=== PATIENT | female | born 1965 | race Caucasian/White ===

== ENCOUNTER 2024-05-31 13:20 | Emergency (ER) | payer MEDICARE, MEDICAID ==
[~2024-05-31 13:20] MED LIST: ALBU18HF2 INH; APIX5TAB3 PO; ASPIRIN 81MG PO; BABY ASPIRIN PO; BENZ1TAB97 PO; BUSPIRONE; CALC500T11 PO; CELE-193 PO; CETI-90 PO; DOCU100C40 PO; FLUO40CA PO; HYDR-3965 PO; IRON SUPPLIMENT; METO-384 PO; MULT-1085 PO; OLOPATADINE 0.2% EACHEYE; OMEP40CA21 PO; ONDA-103; OSC500T PO; PALI3TAB PO; PER5325T; ZIPR60CA7 PO
[2024-05-31 13:23] VITALS: TEMP 98.4
[2024-05-31 15:38] VITALS: BP 146/86; PULSE 82; RESP 15; O2SAT 98
== END 2024-05-31 15:53 | disposition home or self-care (01) ==
LOC: ER 13:21
DX: R60.0 Localized edema (principal); J45.909 Unspecified asthma, uncomplicated; Z88.1 Allergy status to other antibiotic agents; Z88.3 Allergy status to other anti-infective agents; Z91.040 Latex allergy status
CPT/HCPCS: 93971; 99284

== ENCOUNTER 2024-08-05 14:51 | Emergency (ER) | payer MEDICARE, MEDICAID ==
[~2024-08-05] VITALS: Ht 172.7 cm; Wt 118.2 kg
[2024-08-05 15:44] LABS: BASOPHILS % (AUTO) 0.4 % (0-1); EOSINOPHILS % (AUTO) 0.4 % (0-6); HEMATOCRIT 40.2 % (35.0-45.0); HEMOGLOBIN 13.6 g/dl (12.0-16.0); LYMPHOCYTES # (AUTO) 1.7 X10'3 (1.1-4.8); LYMPHOCYTES % (AUTO) 22.7 % (21-51); MEAN CORPUSCULAR HEMOGLOBIN 30.9 PG (27.0-31.0); MEAN CORPUSCULAR HGB CONC 33.9 g/dL (33.0-36.5); MEAN CORPUSCULAR VOLUME 91.3 FL (78-98); MEAN PLATELET VOLUME 7.7 FL (7.4-10.4); MONOCYTES # (AUTO) 0.4 X10'3 (0-0.9); MONOCYTES % (AUTO) 5.6 % (2-12); NEUTROPHILS # (AUTO) 5.4 X10'3 (1.8-7.7); NEUTROPHILS % (AUTO) 70.9 % (42-75); PLATELET COUNT 261 X10'3 (140-440); RED CELL DISTRIBUTION WIDTH 14.5 % (11.5-14.5); WHITE BLOOD COUNT 7.7 X10'3 (4.5-11.0)
[2024-08-05 16:13] LABS: ALANINE AMINOTRANSFERASE 18 U/L (12-78); ALBUMIN 3.2 G/DL (3.4-5.0); ALKALINE PHOSPHATASE 106 IU/L (46-116); ANION GAP 11 (8-16); ASPARTATE AMINO TRANSFERASE 11 U/L (10-37); BILIRUBIN,TOTAL 0.4 MG/DL (0.1-1.0); BLOOD UREA NITROGEN 10 MG/DL (7-18); BUN/CREATININE RATIO 11.4 (10.0-20.0); CALCIUM 9.2 MG/DL (8.5-10.1); CHLORIDE 107 MMOL/L (99-107); CREATININE 0.88 MG/DL (0.40-0.90); GLUCOSE 126 MG/DL (70-104); LIPASE 12 U/L (16-77); POTASSIUM 3.8 MMOL/L (3.5-5.1); SODIUM 141 MMOL/L (135-145); TOTAL CARBON DIOXIDE 23.2 MMOL/L (24-32); TOTAL PROTEIN 6.3 G/DL (6.4-8.2); eCRCL 70 ML/MIN; eGFR 66 ML/MIN
--- NOTE | 2024-08-05 17:30 | Physician Documentation ---
History of Present Illness Chief Complaint: Abdominal Pain Stated Complaint: STOMACH PAIN Time Seen by MD: 16:51 HPI 59-year-old female presents to the ED with a complaint of two days of diarrhea. She denies any severe abdominal pain does report mild discomfort in the right lower quadrant states that she this does happened to her intermittently. says that Imodium AD usually helps. Denies any fever Day of Onset: August 05, 2024 Medication Reconciliation Allergies: Coded Allergies: chlorpromazine (Verified Allergy, Unknown, 05/02/14) ketoconazole (Verified Allergy, Unknown, 05/02/14) latex (Verified Allergy, Unknown, 05/02/14) tetracycline (Verified Allergy, Unknown, 05/02/14) Scheduled Albuterol Sulfate (Ventolin Hfa), 2 PUFFS INH Q4HPRN, (Reported) Apixaban (Eliquis), 5 MG PO BID, (Reported) Benztropine Mesylate* (Cogentin*), 1 MG PO BID, (Reported) Calcium Carbonate (Tums), 1 TAB PO Q4H, (Reported) Calcium Carbonate* (Oscal*), 1 TAB PO BID, (Reported) Celecoxib* (Celebrex*), 50 MG PO BID, (Reported) Cephalexin*Monohydrate* (Keflex*), 1 CAP PO Q8H Docusate Sodium (Docusate Sodium), 1 CAP PO Q12H, (Reported) Fluoxetine Hcl (Fluoxetine Hcl), 1 CAP PO DAILY, (Reported) Hydrocodone Bit/Acetaminophen 5/325 MG ([place] 5/325 MG), 1 TAB PO Q4H, (Reported) Metoprolol Succinate (Metoprolol Succinate), 1 TAB PO BID, (Reported) Multivitamin (Multi Vitamin Daily), 1 TAB PO DAILY, (Reported) Omeprazole (Prilosec), 1 CAP PO DAILY, (Reported) Paliperidone (Invega), 1 TAB PO QAM, (Reported) Ziprasidone Hcl (Ziprasidone Hcl), 1 CAP PO BID, (Reported) [Buspirone], 30 MG BID, (Reported) Scheduled PRN Cetirizine HCl (Zyrtec), 1 TAB PO BID PRN for PRN, (Reported) Miscellaneous Medications Ondansetron HCl (Ondansetron HCl), (Reported) Oxycodone Hcl/Acetaminophen 5/325 MG* (Percocet 5/325 MG*), (Reported) [Aspirin 81MG], 81 MG PO [Baby Aspirin Ec], 81 MG PO, (Reported) [Iron Suppliment], (Reported) [Olopatadine Shaina 0.2%], 1 DROP EACHEYE, (Reported) Past Medical History Past Medical History: Headache, Asthma Past Surgical History: noncontributory Smoking Status: Former smoker Drug Use: none Lives In: Home Review of Systems All Other Systems at this time: Reviewed and Negative ROS As stated above in the HPI, otherwise all systems are reviewed and negative. Physical Exam Vital Signs: Temperature: 97.8, Source: Temporal, Heart Rate: 90, Respiratory Rate: 15, BP: 140/82, Pulse Oximetry: 97, Weight: 118.180 Physical Exam General: Alert, no apparent distress. Respiratory: Lungs clear, no respiratory distress. Chest: No accessory muscle use. Cardiovascular: Regular rate and rhythm, no murmurs. Gastrointestinal: Soft, nontender, nondistended. Bowels sounds present. Extremities: Normal range of motion, no deformity. Neurologic: Oriented x4. Psychiatric: Normal mood and affect. Skin: Normal color, warm and dry. No edema, no ecchymosis. Progress Results/Orders Results/Orders Orders - SHADY GALAVN DOULA Urinalysis, Cult If Indicated (08/05/24 15:11) Completed Orders - SHADY GALVAN DOULA Cbc/Diff (08/05/24 15:11) BMP (08/05/24 15:11) Lipase (08/05/24 15:11) CMP (08/05/24 15:11) Vital Signs 08/05/24 08/05/24 15:09 15:47 Temp 97.8 Pulse 88 90 Resp 18 15 B/P (MAP) 134/91 140/82 (101) Pulse Ox 98 97 Laboratory Tests Test 08/05/24 15:32 White Blood Count 7.7 Red Blood Count 4.40 Hemoglobin 13.6 Hematocrit 40.2 Mean Corpuscular Volume 91.3 Mean Corpuscular Hemoglobin 30.9 Mean Corpuscular Hemoglobin Concent 33.9 Red Cell Distribution Width 14.5 Platelet Count 261 Mean Platelet Volume 7.7 Neutrophils (%) (Auto) 70.9 Lymphocytes (%) (Auto) 22.7 Monocytes (%) (Auto) 5.6 Eosinophils (%) (Auto) 0.4 Basophils (%) (Auto) 0.4 Neutrophils # (Auto) 5.4 Lymphocytes # (Auto) 1.7 Monocytes # (Auto) 0.4 Eosinophils # (Auto) 0.0 Basophils # (Auto) 0.0 CBC Comment Sodium Level 141 Potassium Level 3.8 Chloride Level 107 Carbon Dioxide Level 23.2 L Anion Gap 11 Blood Urea Nitrogen 10 Creatinine 0.88 Estimated GFR/1.73 m2 66 BUN/Creatinine Ratio 11.4 Glucose Level 126 H Calcium Level 9.2 Total Bilirubin 0.4 Aspartate Amino Transf (AST/SGOT) 11 Alanine Aminotransferase (ALT/SGPT) 18 Alkaline Phosphatase 106 Total Protein 6.3 L Albumin 3.2 L Globulin 3.1 Albumin/Globulin Ratio 1.0 L Lipase 12 L Chemistry Comments Medical Decision Making Findings I am going to treat patient for a positive UTI with positive nitrites. No other laboratory results showed any findings. Patient otherwise is nontoxic appearing and appropriate to the situation going to discharge her back to her facility Differential Dx:Considerations: Include: AAA, -Complete, - Incomplete, -Inevitable, -Missed, -Threatened, Abruptio placentae, Angina/TN, Aortic dissection, Appendicitis, Bowel obstruction, Cholangitis, Cholelithasis, Constipation, Diverticular disease, Esophageal rupture, Esophagitis, Gastritis/PUD, Gastroenteritis, GI hemorrhage, Hernia, Hepatitis, Inflammatory BD, Ischemic bowel, Ovarian cyst/torsion, Pancreatitis, PID, Porphyria, Trauma, intraabdominal, Urinary obstruction, Urinary tract infection, Urolithiasis, Other Departure Disposition: 01 HOME / SELF CARE / HOMELESS Impression: Primary Impression: UTI (urinary tract infection) Condition: Stable Discharge Instructions: Urinary Tract Infection, Adult Referrals: NO PRIMARY CARE PROVIDER (PCP) Prescriptions Cephalexin*Monohydrate* (Keflex*) 500 Mg Capsule 1 CAP PO Q8H for 10 Days, #30 CAP Prov: SHADY GALVAN DOULA 08/05/24 Education Educated: Patient Educated regarding: diagnosis Signature Scribe Signature: h Attestation: The note accurately reflects work and decisions made by me.Shady Galvan - JUAN 08/05/24 18:29 SHADY GALVAN NP August 05, 2024 17:30
[2024-08-05 17:58] LABS: BILIRUBIN,URINE NEGATIVE (Neg); CLARITY,URINE CLOUDY (Clear); COLOR,URINE YELLOW (Yellow); GLUCOSE, URINE NEGATIVE (Neg); KETONES,URINE NEGATIVE (Neg); LEUKOCYTE ESTERASE ,URINE TRACE (Neg); NITRITES, URINE POSITIVE (Neg); OCCULT BLOOD,URINE NEGATIVE (Neg); PROTEIN,URINE NEGATIVE (Neg); UROBILINOGEN,URINE 0.2 E.U/dL (0.2-1.0)
[2024-08-05 18:03] LABS: UA COLLECTION TYPE URINAL
[2024-08-05 18:04] LABS: BACTERIA,URINE 4+ /HPF (Neg); MUCUS STRANDS NONE SEEN /LPF (Neg); RBC,URINE 0-2 /HPF (0-2); SQUAMOUS EPITHELIAL CELL,UR FEW /LPF (FEW); TRANSITIONAL EPI CELLS,URINE FEW /HPF
[2024-08-05 18:05] LABS: AMORPHOUS URATES 1+; RENAL CELLS, URINE FEW /HPF
[2024-08-05] MEDS ORDERED: CEPH-585 PO (18:29)
[2024-08-05 18:40] VITALS: BP 120/80; PULSE 76; RESP 16; TEMP 98; O2SAT 99
== END 2024-08-05 18:40 | disposition home or self-care (01) ==
LOC: ER 14:51
DX: N39.0 Urinary tract infection, site not specified (principal); J45.909 Unspecified asthma, uncomplicated; Z87.891 Personal history of nicotine dependence; Z88.1 Allergy status to other antibiotic agents; Z88.3 Allergy status to other anti-infective agents
CPT/HCPCS: 36415; 80053; 81001; 83690; 85025; 87077; 87088; 87186; 99284

== ENCOUNTER 2024-10-12 10:27 | Emergency (ER) | payer MEDICARE, MEDICAID ==
[~2024-10-12] VITALS: Ht 170.2 cm; Wt 118.6 kg
--- NOTE | 2024-10-12 11:16 | Physician Documentation ---
History of Present Illness ~ Chief Complaint: Ankle pain Stated Complaint: L ANKLE PAIN Time Seen by MD: 11:08 Source: patient Mode of Arrival: Wheelchair Exam Limitations: no limitations HPI 59 Year old female with history of fracture to left ankle was using the restroom yesterday when she stepped and twisted ankle and has pain but she has been weight-bearing. No swelling Tetanus witin 5 years: No Medication Reconciliation Allergies: Coded Allergies: chlorpromazine (Verified Allergy, Unknown, 10/12/24) ketoconazole (Verified Allergy, Unknown, 10/12/24) latex (Verified Allergy, Unknown, 10/12/24) tetracycline (Verified Allergy, Unknown, 10/12/24) Scheduled Albuterol Sulfate (Ventolin Hfa), 2 PUFFS INH Q4HPRN, (Reported) Apixaban (Eliquis), 5 MG PO BID, (Reported) Benztropine Mesylate* (Cogentin*), 1 MG PO BID, (Reported) Calcium Carbonate (Tums), 1 TAB PO Q4H, (Reported) Calcium Carbonate* (Oscal*), 1 TAB PO BID, (Reported) Celecoxib* (Celebrex*), 50 MG PO BID, (Reported) Docusate Sodium (Docusate Sodium), 1 CAP PO Q12H, (Reported) Fluoxetine Hcl (Fluoxetine Hcl), 1 CAP PO DAILY, (Reported) Hydrocodone Bit/Acetaminophen 5/325 MG ([place] 5/325 MG), 1 TAB PO Q4H, (Reported) Metoprolol Succinate (Metoprolol Succinate), 1 TAB PO BID, (Reported) Multivitamin (Multi Vitamin Daily), 1 TAB PO DAILY, (Reported) Omeprazole (Prilosec), 1 CAP PO DAILY, (Reported) Paliperidone (Invega), 1 TAB PO QAM, (Reported) Ziprasidone Hcl (Ziprasidone Hcl), 1 CAP PO BID, (Reported) [Buspirone], 30 MG BID, (Reported) Scheduled PRN Cetirizine HCl (Zyrtec), 1 TAB PO BID PRN for PRN, (Reported) Miscellaneous Medications Ondansetron HCl (Ondansetron HCl), (Reported) Oxycodone Hcl/Acetaminophen 5/325 MG* (Percocet 5/325 MG*), (Reported) [Aspirin 81MG], 81 MG PO [Baby Aspirin Ec], 81 MG PO, (Reported) [Iron Suppliment], (Reported) [Olopatadine Shaina 0.2%], 1 DROP EACHEYE, (Reported) Past Medical History Past Medical History: Headache, Asthma Past Surgical History: noncontributory Drug Use: none Lives In: Home Review of Systems All Other Systems at this time: Reviewed and Negative Musculoskeletal: Reports: see HPI Physical Exam Vital Signs: RN Vital Signs have been reviewed: Yes, Temperature: 98.7, Source: Oral, Heart Rate: 89, Respiratory Rate: 20, BP: 155/84, Pulse Oximetry: 97, Weight: 118.640 Physical Exam General: Alert, no apparent distress. Respiratory: Lungs clear, no respiratory distress. Chest: No accessory muscle use. Cardiovascular: Regular rate and rhythm, no murmurs. Extremities: Normal range of motion no deformity no obvious swelling pain to the lateral malleolus Neurologic: Oriented x4. Psychiatric: Normal mood and affect. Skin: Normal color, warm and dry. No edema, no ecchymosis. Progress Results/Orders Results/Orders Vital Signs 10/12/24 10:30 Temp 98.7 Pulse 89 Resp 20 B/P (MAP) 155/84 Pulse Ox 97 EKG/XRAY/CT/US/VASC/MRI Bone/Soft Tissue X-Ray (Ext.) : Additional Comment CLINICAL INDICATION: ANKLE PAIN TECHNIQUE: 4 radiographic views of the left ankle were obtained. Comparison: None FINDINGS/IMPRESSION: There is acute mildly displaced fracture of the distal medial and posterior tibia with intra-articular extension. There is associated widening of the posterior tibiotalar joint space and associated soft tissue edema. Small plantar calcaneal bony spur. Medical Decision Making Findings Previous injuring fracture years ago. Patient twisted left ankle x-ray to evaluate for any osseous abnormality differentials includes sprain. Mildly displaced fracture that is acute. Short-leg splint placed orthopedic referral placed Departure Time of Disposition: 13:27 Disposition: 01 HOME / SELF CARE / HOMELESS Impression: Primary Impression: Ankle fracture Condition: Stable Discharge Instructions: Ankle Fracture Additional Instructions: CLINICAL INDICATION: ANKLE PAIN TECHNIQUE: 4 radiographic views of the left ankle were obtained. Comparison: None FINDINGS/IMPRESSION: There is acute mildly displaced fracture of the distal medial and posterior tibia with intra-articular extension. There is associated widening of the posterior tibiotalar joint space and associated soft tissue edema. Small plantar calcaneal bony spur. Fracture noted follow up with [facility] for further treatment and evaluation follow up with primary care Monday or Monday leave splint on until followed by Orthopedics Referrals: NO PRIMARY CARE PROVIDER (PCP) [facility] Education Educated: Patient Educated regarding: diagnosis, treatment, need for follow up Signature Scribe Signature: No scribe Attestation: The note accurately reflects work and decisions made by me.Lidia JOHNSON 10/12/24 11:16 LIDIA ARNOLD NP Oct 12, 2024 11:16
--- NOTE | 2024-10-12 13:04 | RADIOLOGY REPORT ---
CLINICAL INDICATION: ANKLE PAIN TECHNIQUE: 4 radiographic views of the left ankle were obtained. Comparison: None FINDINGS/IMPRESSION: There is acute mildly displaced fracture of the distal medial and posterior tibia with intra-articula r extension. There is associated widening of the posterior tibiotalar joint space and associated sof t tissue edema. Small plantar calcaneal bony spur.
[2024-10-12 14:49] VITALS: BP 134/108; PULSE 95; RESP 16; TEMP 97.8; O2SAT 97
== END 2024-10-12 14:53 | disposition home or self-care (01) ==
LOC: ER 10:27
DX: S82.302A Unspecified fracture of lower end of left tibia, initial encounter for closed fracture (principal); J45.909 Unspecified asthma, uncomplicated; Z88.1 Allergy status to other antibiotic agents; Z88.3 Allergy status to other anti-infective agents; Z91.040 Latex allergy status; X50.1XXA Overexertion from prolonged static or awkward postures, initial encounter; Y93.89 Activity, other specified; Y92.89 Other specified places as the place of occurrence of the external cause; Y99.8 Other external cause status
CPT/HCPCS: 29515; 73610; 99284; A6402; A6446; A6449

== ENCOUNTER 2025-01-16 14:09 | Emergency (ER) | payer MEDICARE, MEDICAID ==
[~2025-01-16] VITALS: Ht 167.6 cm; Wt 118.6 kg
[~2025-01-16 14:09] MED LIST changes: +ACET-1025 PO; -ASPIRIN 81MG PO; +BUSP30TA3 PO; -BUSPIRONE; -CALC500T11 PO; +DIGO-20 PO; -IRON SUPPLIMENT; +KEN0.1O TOP; -MULT-1085 PO; -ONDA-103; +ONDA-103 PO; -PER5325T; +WALKERFR
[2025-01-16 14:19] VITALS: BP 108/76; PULSE 88; RESP 16; TEMP 96.8; O2SAT 94
--- NOTE | 2025-01-16 14:56 | RADIOLOGY REPORT ---
CLINICAL HISTORY: Hip Pain Post Fall TECHNIQUE: 2 views of the left hip were obtained. COMPARISON: DI FLUORO UP TO 1HOUR on DOS: 10/24/24, DI ANKLE,LIMITED (AP/LAT) on DOS: 10/24/24, DI ANKLE, COMPLETE(3VW MIN) on DOS: 10/12/24 FINDINGS: No acute fracture or dislocation is seen. There is a right total hip arthroplasty. No periprosthetic fracture or lucency is seen within the imaged arthroplasty. There are moderate to severe degenerative changes of the left hip with [id number] appearance, lateral hip subluxation, subchondral sclerosis, and remodeling of the femoral head. No significant soft tissue abnormality is seen. IMPRESSION: NO ACUTE RADIOGRAPHIC ABNORMALITY OF THE LEFT HIP.
--- NOTE | 2025-01-16 15:23 | Physician Documentation ---
History of Present Illness ~ Chief Complaint: Mechanical Fall Stated Complaint: HIP PAIN Time Seen by MD: 14:22 HPI This 59-year-old female with a history of developmental delay was brought in by care staff after she had a slip and fall while using the toilet patient reports that she fell striking her left hip though was able to catch herself on the toilet to avoid falling all the way to the ground, patient reports pain to left hip and reports no other acute injuries or concerns. Patient reports no head strike. Tetanus within 5 Years?: No Medication Reconciliation Allergies: Coded Allergies: chlorpromazine (Verified Allergy, Intermediate, ITCH, 01/16/25) ketoconazole (Verified Allergy, Intermediate, ITCH, 01/16/25) latex (Verified Allergy, Intermediate, ITCH, 01/16/25) tetracycline (Verified Allergy, Intermediate, ITCH, 01/16/25) Scheduled Albuterol Sulfate (Ventolin Hfa), 2 PUFFS INH Q4HPRN, (Reported) Apixaban (Eliquis), 5 MG PO BID, (Reported) Benztropine Mesylate* (Cogentin*), 1 MG PO BID, (Reported) Buspirone HCl (Buspirone HCl), 1 TAB PO Q12H, (Reported) Calcium Carbonate* (Oscal*), 1 TAB PO BID, (Reported) Celecoxib* (Celebrex*), 50 MG PO BID, (Reported) Digoxin (Digoxin), 1 TAB PO DAILY, (Reported) Docusate Sodium (Docusate Sodium), 1 CAP PO Q12H, (Reported) Fluoxetine Hcl (Fluoxetine Hcl), 1 CAP PO DAILY, (Reported) Metoprolol Succinate (Metoprolol Succinate), 1 TAB PO BID, (Reported) Omeprazole (Prilosec), 1 CAP PO DAILY, (Reported) Paliperidone (Invega), 1 TAB PO QAM, (Reported) Triamcinolone Acetonide 0.1% Crm* (Kenalog 0.1% Crm*), 1 APPLIC TOP Q12H, (Reported) Ziprasidone Hcl (Ziprasidone Hcl), 1 CAP PO DAILY, (Reported) Scheduled PRN Acetaminophen (Tylenol Extra Strength), 1 TAB PO TID PRN PRN for pain or fever, (Reported) Cetirizine HCl (Zyrtec), 1 TAB PO BID PRN for PRN, (Reported) Hydrocodone Bit/Acetaminophen 5/325 MG ([place] 5/325 MG), 1 TAB PO Q4H PRN for pain, (Reported) Ondansetron HCl (Ondansetron HCl), 4 MG PO PRN PRN for nausea/vomiting, (Reported) Miscellaneous Medications [Baby Aspirin Ec], 81 MG PO, (Reported) [Olopatadine Shaina 0.2%], 1 DROP EACHEYE, (Reported) Durable Medical Equipment Walker, Front Wheeled (Walker, Front-wheeled), APPLIC .SEE ORDER DAILY PRN for prn, (DME) Past Medical History Past Medical History: Headache, Asthma Past Surgical History: noncontributory Drug Use: none Lives In: Home Review of Systems ROS As stated above in the HPI, otherwise all systems are reviewed and negative. Physical Exam Vital Signs: Temperature: 96.8, Source: Temporal, Heart Rate: 88, Respiratory Rate: 16, BP: 108/76, Pulse Oximetry: 94, Weight: 118.640 Oxygen Flow Rate: 0 Physical Exam VITALS: Reviewed and as above. GENERAL: Alert, nontoxic appearing, no apparent distress. HEENT: PERRLA, EOMI, scalp nontender to palpation, no visible injuries, C-spine nontender to palpation RESPIRATORY: No increased work of breathing, no respiratory distress, speaking in full clear sentences MUSCULOSKELETAL: Tenderness to left lateral upper thigh and hip, no obvious deformity, all other limbs nontender to palpation, of note left foot in boot post recent surgery Progress Results/Orders Results/Orders Orders - JUAREZ NIXON Hip Unilateral 2 Views (01/16/25 14:23) Completed Orders - JUAREZ NIXON Hip Unilateral 2 Views (01/16/25 14:23) Vital Signs 01/16/25 14:19 Temp 96.8 Pulse 88 Resp 16 B/P (MAP) 108/76 Pulse Ox 94 O2 Flow Rate 0 EKG/XRAY/CT/US/VASC/MRI Bone/Soft Tissue X-Ray (Ext.) : Additional Comment Exam: HIP UNILATERAL 2 VIEWS CLINICAL HISTORY: Hip Pain Post Fall TECHNIQUE: 2 views of the left hip were obtained. COMPARISON: DI FLUORO UP TO 1HOUR on DOS: 10/24/24, DI ANKLE,LIMITED (AP/LAT) on DOS: 10/24/24, DI ANKLE, COMPLETE(3VW MIN) on DOS: 10/12/24 FINDINGS: No acute fracture or dislocation is seen. There is a right total hip arthroplasty. No periprosthetic fracture or lucency is seen within the imaged arthroplasty. There are moderate to severe degenerative changes of the left hip with [id number] appearance, lateral hip subluxation, subchondral sclerosis, and remodeling of the femoral head. No significant soft tissue abnormality is seen. IMPRESSION: NO ACUTE RADIOGRAPHIC ABNORMALITY OF THE LEFT HIP. Electronically Signed by:ROSALVA BECKWITH MD Date & Time: 01/16/251452 Dictated by: ROSALVA BECKWITH MD Dictation date and time: 01/16/251452 I have reviewed and agree with the radiology report. I have reviewed and interpreted the imaging as: No fracture or dislocation Medical Decision Making Additional information obtaine: piece work checker Findings This 59-year-old female with a history of developmental delay brought in by caregivers for left hip pain after a mechanical ground level fall striking her left hip, physical exam significant for tenderness to the left lateral hip and upper thigh otherwise physical exam benign with no other acute injuries. X-ray of hip did not demonstrate evidence of fracture or dislocation. I suspect soft tissue injury and or contusion to the hip and thigh. Patient is otherwise well- appearing and appropriate for outpatient follow up. Caregivers provided home care instructions, follow up instructions, and return to care precautions. Differential Dx:Considerations: Include: Closed head injury, Cardiac injury, Fracture(s), Intraabdominal injury, Pneumothorax, Cerebral contusion, Spine injury, Urological injury, Vascular injury, Contusion(s), Hematoma(s), Laceration(s) Departure Time of Disposition: 15:22 Disposition: 01 HOME / SELF CARE / HOMELESS Impression: Primary Impression: Hip pain Qualified Codes: M25.552 - Pain in left hip Condition: Improved Discharge Instructions: RICE Therapy for Routine Care of Injuries, [id number] Additional Instructions: Please see the attached home care instructions to help treat her hip pain to include rest, ice, compression, and elevation. May use ibuprofen and or Tylenol as directed by [id number] packaging and or use previously prescribed pain medications. Please follow up with your primary care provider in the next few days. Please return to the emergency department for any new or worsening concerning symptoms. Referrals: NO PRIMARY CARE PROVIDER (PCP) Education Educated: Patient Educated regarding: diagnosis, treatment, prognosis, need for follow up Signature Scribe Signature: No scribe Attestation: The note accurately reflects work and decisions made by me.ALEX Littlejohn 01/17/25 01:36 Parts of this note were created using [employer] voice recognition software program. While efforts were made to correct any mistakes made by this voice recognition software program, nonsensical phrases may remain in this note. In addition, there may be errors and syntax, grammar, content and spelling. JUAREZ NIXONP Jan 16, 2025 15:22
== END 2025-01-16 15:32 | disposition home or self-care (01) ==
LOC: ER 14:10
DX: M25.552 Pain in left hip (principal); J45.909 Unspecified asthma, uncomplicated; Z91.040 Latex allergy status; Z88.1 Allergy status to other antibiotic agents; Z88.3 Allergy status to other anti-infective agents; Z79.899 Other long term (current) drug therapy; W01.0XXA Fall on same level from slipping, tripping and stumbling without subsequent striking against object, initial encounter; Y93.89 Activity, other specified; Y92.89 Other specified places as the place of occurrence of the external cause; Y99.8 Other external cause status
CPT/HCPCS: 73502; 99284